=== PATIENT | female | born 1955 | race Caucasian/White ===

== ENCOUNTER → 2017-06-08 | Outpatient (CLI) | payer MEDICAID ==
[~2017-06-08] MED LIST: CLARITIN 10MG T10 MG PO; LISINOPRIL10 MG PO; TYLENOL 8 HOUR650 MG PO
--- NOTE | 2017-06-13 08:10 | RADIOLOGY REPORT PS360 ---
MRI-UP EXT ANY JNT W/O-RT MRI right shoulder HISTORY: ROTATOR CUFF TEAR Patient Age: 61 years: FemaleRight shoulder pain 1 year since worse accident pain with raising arm above head weakness right arm numbness tingling and burning to elbow Ordering Physician: GLENN ARENAS TECHNIQUE: Multiplanar multisequence imaging 1.5 [facility] COMPARISON :None available FINDINGS No full-thickness rotator cuff tear. No significant increase fluid at subdeltoid subacromial bursa. Supraspinatus tendon overall intact with only some minor increased signal at its inferior margin which could reflect mild tendinopathy. At its undersurface at the midportion.. Infraspinatus tendon intact. There is Insertional erosion reflecting the increased signal in the bone beneath its insertion site of the more posterior humeral head. Subscapularis tendon appears intact. Biceps tendon appears satisfactory AC joint arthropathy Glenohumeral joint appears intact with No significant glenohumeral joint effusion The osseous glenoid is intact. Posterior labrum intact. Anterior labrum is slightly more irregular this character which could reflect some degeneration or fraying no definitive nor prominent tear evident. Most notable is in this patient is the prominent AC joint arthropathy .. Prominent signal is seen about the somewhat irregular appearing osseous margins of the AC joint.-Most likely reflecting degenerative changes with numerous subchondral cystic changes included at the margins of AC joint.. I could not exclude some minor posttraumatic changes here as well.. Plain films would be helpful.. With this irregular appearing arthritic appearing AC joint there is minimal fluid AC joint noted.. AC joint measures upper normal width at 4-5 mm wide probably within normal limits but again I cannot exclude some recent trauma here with overall edema and appearance . There is slight downward sloping appearance of the distal clavicle leading to the acromion. Acromion is fairly neutral with only slight downward sloping, with minor spurring and enthesopathy at its inferior tip. The subacromial space beneath the acromion is 6 mm, slightly narrowed. On also what appears to be an os acromiale on axial image 6. A subtle line is seen through the distal acromion however we see no reactive changes and conceivably this os acromiale it may be partially fused. IMPRESSION--- 1. Most notable signal abnormalities are related to the prominent AC joint arthropathy/hypertrophy. Irregularity with Increased signal is seen about the margin of the AC joint most likely the basis of arthropathy-however I can't exclude some additional recent injury here... Suggest AC joint views with and without weights, along with right shoulder radiographs 2. Suggestion of a subtle os acromiale-but no increased signal here at its margins. (Initially Questioned possible subtle hairline fracture here at acromion, but we do not see increased signal to support a recent bone injury here]. 3. No full-thickness rotator cuff tear evident. 4. Suspect minimal Supraspinatus Tendinopathy. Only slight increased signal within undersurface of supraspinatus tendon which may reflect supraspinatus tendinopathy. Less likely minor undersurface tear. Unimpressive overall. . Infraspinatus tendon appears intact,. Only minor insertional erosion posterior humeral head associated.
== END ==
LOC: RAD 06-04 13:00
DX: M75.101 Unspecified rotator cuff tear or rupture of right shoulder, not specified as traumatic (principal)

== ENCOUNTER → 2017-08-20 | Outpatient (CLI) | payer MEDICAID ==
--- NOTE | 2017-08-21 08:36 | RADIOLOGY REPORT PS360 ---
MRI-T-SPINE W/O HISTORY: Mid back pain which is getting worse LOW BACK PAIN ORDERING PHYSICIAN: GLENN ARENAS PATIENT AGE: 62 years COMPARISON: None TECHNIQUE: Standard multiplanar multiecho sequences are performed without contrast. 3-D MIP and myelographic images are also rendered and reviewed FINDINGS: There is normal alignment. No obvious fracture or subluxation. No lytic or blastic changes. There is a small left paracentral disc protrusion at T8-T9. No significant cord compression or is placement evident. Mild degenerative disc disease with minimal endplate irregularity at T11-T12. There is some mild to set hypertrophic change with mild bilateral foraminal narrowing. IMPRESSION: 1. No acute fracture or destructive process. 2. Minimal left paracentral disc protrusion T8-T9. 3. Mild degenerative disc disease T11-T12 with minimal bilateral foraminal narrowing from facet hypertrophy
== END ==
LOC: RAD 08-17 13:00
DX: M54.5 Low back pain (principal)

== ENCOUNTER → 2017-08-27 | Outpatient (CLI) | payer MEDICAID ==
--- NOTE | 2017-08-27 15:16 | RADIOLOGY REPORT PS360 ---
MRI-L-SPINE W/O, MRI-3D RENDERING/MYELOGRAM HISTORY: Low back pain LUMBAR PAIN ORDERING PHYSICIAN: GLENN ARENAS PATIENT AGE: 62 years COMPARISON: None TECHNIQUE: Standard multiplanar multiecho sequences are performed without contrast. 3-D MIP and myelographic images are also rendered and reviewed FINDINGS: There is normal alignment. The spinal cord ends at the L1 level. Mild degenerative disc disease T11-T12 with mild facet hypertrophic change and mild bilateral foraminal narrowing. T12-L1, L1-L2, L2-L3 have an unremarkable appearance. L3-L4 mild facet hypertrophic change. L4-L5: Minimal bulging disc with minimal facet hypertrophy L5-S1: Minimal bulging disc. No canal stenosis or disc herniation. IMPRESSION: 1. No disc herniation or canal stenosis. 2. Mild spondylosis with mild facet and ligamentum flavum hypertrophy and minimal bulging disc as detailed above
== END ==
LOC: RAD 12:44
DX: M54.5 Low back pain (principal)